=== PATIENT | female | born 1950 | race Caucasian/White ===

== ENCOUNTER 2023-01-29 14:23 | Outpatient (AMB) | payer MEDICARE, BC, SELFPAY ==
--- NOTE | 2023-01-29 14:25 | MHC.OFFVIS ---
Intake Vital Signs 01/29/23 14:27 Height 5 ft 5 in Weight 154 lb BMI 25.6 BP 118/74 Blood Pressure Location Rt brachial Position Sitting Pulse 78 Pulse Source Pulse Oximeter Pulse Oximetry (%) 98 Oxygen Delivery Method Room Air Intake Visit Reasons: NPV-Hx CVA w/residual weakness-confirmed Intake Note: Patient presents for weakness. Allergies codeine Allergy (Severe, Verified 01/29/23 14:29) Headache tolterodine [From Detrol] Allergy (Severe, Verified 01/29/23 14:29) Vomiting sulfamethizole Allergy (Unknown, Verified 01/29/23 14:29) Unknown fenatnyl Allergy (Severe, Uncoded 01/29/23 14:29) Unknown Medication List - Last Reconciled 01/29/23 by Moon Márquez MD aspirin 81 mg PO DAILY atorvastatin 80 mg PO DAILY atorvastatin 80 mg PO DAILY levothyroxine 100 mcg PO DAILY levothyroxine 50 mcg PO DAILY lisinopril 5 mg PO DAILY lisinopril 5 mg PO DAILY temazepam 15 mg PO BEDTIME PRN temazepam 15 mg PO BEDTIME PRN HPI HPI Comments History of Present Illness Details 73y/o female with 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 She started noticing chewing movements in left left side after her CVA.she can control it for few minutes.she does not know the exacerbating or relieving factors.she chews the side of her left cheek and the tongue which bothers her. She is not sure if it happens in sleep. she also has insomnia and she has been taking her husbands temazepam 15 mg qhs which is helping. SHe is not sure if she snores. she wakes up tired as she sleeps only 4 hrs of sleep. she naps during daytime, she sleeps 2 hrs during daytime.Appetite is good. Mood is stable. 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 [facility] Medical History (Updated 01/29/23 @ 15:04 by Moon Márquez MD) Abnormal involuntary movement Carotid stenosis CVA (cerebral vascular accident) HTN (hypertension) Hypothyroidism Left hemiparesis Right-sided extracranial carotid artery stenosis Surgical History H/O: hysterectomy Stented coronary artery Family History Father Diabetes Mother Ischemic bowel disease Daughter Diabetes Son Anxiety Social History Alcohol intake: never Patient Tobacco Use Status: Former Tobacco user Review of Systems Const Reports difficulty sleeping, Reports headache(s), Reports lethargy, Reports malaise, Reports weakness and Reports weight gain ENT Reports headache(s) and Reports hearing loss Neuro Reports headache(s) and Reports weakness Physical Exam Vital Signs: Last Vital Signs Pulse 78 01/29/23 14:27 BP 118/74 01/29/23 14:27 Pulse Ox 98 01/29/23 14:27 Oxygen Delivery Method Room Air 01/29/23 14:27 BMI result Body Mass Index 25.6 Const Orientation/consciousness: oriented to person, oriented to place and oriented to time Eyes Pupils: Equal, round and reactive pupils present Neuro Other: Left face UMN facial paresis - mild Left UE 0/5, spasticity Left LE 3/5 increased tone abnormal lower chin movements intermittent General: oriented to person, oriented to place, oriented to time and Unable to assess gait Cranial nerves: Yes Facial sensation intact/muscles of mastication intact, Yes Equal, round and reactive pupils present, Yes Bilaterally intact EOM present, Yes Nystagmus not present and Yes Midline tongue present Cognition (Neuro): normal cognition Gait exam (Neuro): Unable to assess gait Deep tendon reflexes (DTR's): Right triceps reflex intensity grade: 2+, Left triceps reflex intensity grade: 3+, Rt Biceps (C5, C6): 2+, Left biceps reflex intensity grade: 3+, Right brachioradialis reflex intensity grade: 2+, Left brachioradialis reflex intensity grade: 3+, Right patellar reflex intensity grade: 2+ and Left patellar reflex intensity grade: 3+ Coordination: [id number] test normal (normal on right) Assessment & Plan Assessment & Plan (1) Abnormal involuntary movement: Comment: left chin and mouth movement Code(s): R25.9 - Unspecified abnormal involuntary movements (2) CVA (cerebral vascular accident): Code(s): I63.9 - Cerebral infarction, unspecified (3) Left hemiparesis: Code(s): G81.94 - Hemiplegia, unspecified affecting left nondominant side Plan CT brain report from [facility] EEG to evaluate her abnormal movements I will trial her on gabapentin 100 mg 1-3 caps qhs Taper temazepam continue aspirin 81mg qd Atorvastatin 81mg qd Orders: Orders EEG electroencephalogram 01/29/23 R25.9 - Unspecified abnormal involuntary movements Medications: New gabapentin 1-3 caps orally bedtime; 90 caps 2RF Coding Level of Care Code New Pt Level 4 (40860) Diagnoses Abnormal involuntary movement R25.9 CVA (cerebral vascular accident) I63.9 Left hemiparesis G81.94
[2023-01-29 14:27] VITALS: BP 118/74; PULSE 78; O2SAT 98; BMI 25.6
== END 2023-01-29 15:11 | disposition home or self-care (01) ==
LOC: HO.HSMS 14:23
PROVIDERS: PCP Nurse Practitioner Adult Health; Visit Provider Psychiatry & Neurology Neurology
DX: R25.9 Unspecified abnormal involuntary movements (principal); I69.354 Hemiplegia and hemiparesis following cerebral infarction affecting left non-dominant side
CPT/HCPCS: 99204

== ENCOUNTER → 2023-01-29 14:23 | Outpatient (BNVA) | payer MEDICARE, BC, SELFPAY | PROVIDERS: PCP Nurse Practitioner Adult Health; Visit Provider Psychiatry & Neurology Neurology | DX: R25.9 Unspecified abnormal involuntary movements (principal); I63.9 Cerebral infarction, unspecified; G81.94 Hemiplegia, unspecified affecting left nondominant side; G47.00 Insomnia, unspecified; Z95.5 Presence of coronary angioplasty implant and graft | CPT/HCPCS: 99202 ==

== ENCOUNTER 2023-03-27 12:49 | Outpatient (REF) | payer MEDICARE, BC, SELFPAY ==
--- NOTE | 2023-03-27 12:53 | EEG_ITS ---
This is a 16 channel EEG with an EKG lead. The patient is reported awake during the tracing. Background EEG rhythm is continuously asymmetric with 16 to 20 hertz, 5 to 20 microvolt posteriorly and lower amplitude fast anteriorly type of noted in left hemispheric lead while in right hemispheric lead, predominant rhythm was 5 to 7 hertz, 5 to 100 microvolt posteriorly and lower amplitude anteriorly. Occasional right temporal sharp waves were noted with the phase reversal at T4. Cardiac lead did not reveal any significant abnormality. Photic stimulation did not reveal any significant driving. Hyperventilation was not performed. IMPRESSION: Abnormal EEG suggestive of right hemispheric dysfunction with suspicion of underlying structural abnormality but also mild tendency for partial seizures. MD JESSE Chawla/AYDE / [id number]
== END 2023-03-27 12:50 | disposition home or self-care (01) ==
LOC: HO.NEURO 12:49
PROVIDERS: PCP Nurse Practitioner Adult Health; Visit Provider Psychiatry & Neurology Neurology
DX: R25.9 Unspecified abnormal involuntary movements (principal)
CPT/HCPCS: 95816

== ENCOUNTER 2023-05-29 13:54 | Outpatient (AMB) | payer MEDICARE, BC, SELFPAY ==
--- NOTE | 2023-05-29 13:57 | A.OFFVIS_ITS ---
Intake Vital Signs 05/29/23 14:00 Height 5 ft 5 in BP 146/90 H Blood Pressure Location Rt brachial Position Sitting Respiration 16 Pulse 76 Pulse Source Pulse Oximeter Pulse Oximetry (%) 96 Oxygen Delivery Method Room Air Intake Visit Reasons: 3m Hx CVA w/residual weakness-confirmed Intake Note: Pt presents to the office for her 4 month follow up for abnormal involuntary movement. She reports she's been ok. 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 The weakness is the same. 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 Allergies codeine Allergy (Severe, Verified 05/29/23 13:58) Headache tolterodine [From Detrol] Allergy (Severe, Verified 05/29/23 13:58) Vomiting sulfamethizole Allergy (Unknown, Verified 05/29/23 13:58) Unknown fenatnyl Allergy (Severe, Uncoded 05/29/23 13:58) Unknown Medication List - Last Reconciled 05/29/23 by Moon Márquez MD aspirin 81 mg PO DAILY atorvastatin 80 mg PO DAILY famotidine 20 mg PO DAILY gabapentin 1-3 caps orally once; 1-3 caps orally qam gabapentin 300 mg PO BEDTIME levothyroxine 50 mcg PO DAILY lisinopril 5 mg PO DAILY HPI HPI Comments History of Present Illness Details 73y/o female with h/o CVA ( 2014)with re sidual left hemiparesis comes for evaluation of abnormal mouth movements. She started noticing chewing movements in left left side after her CVA.she can control it for few minutes.she does not know the exacerbating or relieving factors.she chews the side of her left cheek and the tongue which bothers her. She is not sure if it happens in sleep. she also has insomnia and she has been taking her husbands temazepam 15 mg qhs which is helping. SHe is not sure if she snores. she wakes up tired as she sleeps only 4 hrs of sleep. she naps during daytime, she sleeps 2 hrs during daytime.Appetite is good. Mood is stable. 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 [facility] Medical History (Updated 01/29/23 @ 15:04 by Moon Márquez MD) Abnormal involuntary movement Right-sided extracranial carotid artery stenosis Carotid stenosis Left hemiparesis CVA (cerebral vascular accident) Hypothyroidism HTN (hypertension) Surgical History Stented coronary artery H/O: hysterectomy Family History Father Diabetes Mother Ischemic bowel disease Daughter Diabetes Son Anxiety Social History Alcohol intake: never Patient Tobacco Use Status: Former Tobacco user Physical Exam Vital Signs: Last Vital Signs Pulse 76 05/29/23 14:00 Resp 16 05/29/23 14:00 BP 146/90 H 05/29/23 14:00 Pulse Ox 96 05/29/23 14:00 Oxygen Delivery Method Room Air 05/29/23 14:00 Const Orientation/consciousness: oriented to person, oriented to place and oriented to time Eyes Pupils: Equal, round and reactive pupils present Neuro Other: Left face UMN facial paresis - mild Left UE 0/5, spasticity Left LE 3/5 increased tone abnormal lower chin movements intermittent General: oriented to person, oriented to place, oriented to time and Unable to assess gait Cranial nerves: Yes Facial sensation intact/muscles of mastication intact, Yes Equal, round and reactive pupils present, Yes Bilaterally intact EOM present, Yes Nystagmus not present and Yes Midline tongue present Cognition (Neuro): normal cognition Gait exam (Neuro): Unable to assess gait Coordination: [id number] test normal (normal on right) Results Reviewed Results Reviewed: EEG- Abnormal EEG suggestive of right hemispheric dysfunction with suspicion of underlying structural abnormality but also mild tendency for partial seizures. Assessment & Plan Assessment & Plan (1) Abnormal involuntary movement: Comment: left chin and mouth movement Code(s): R25.9 - Unspecified abnormal involuntary movements (2) CVA (cerebral vascular accident): Code(s): I63.9 - Cerebral infarction, unspecified (3) Left hemiparesis: Code(s): G81.94 - Hemiplegia, unspecified affecting left nondominant side Plan CT brain report from [facility] Increase gabapentin 300mg qhs 100mg qam - discussed side effects . will monitor for 1 week on how she is doing with higher dose. continue aspirin 81mg qd Atorvastatin 81mg qd Medications: New gabapentin 300 mg PO BEDTIME 30 caps 6RF Changed From gabapentin 1-3 caps orally bedtime; 90 caps 2RF To gabapentin 1-3 caps orally once; 1-3 caps orally qam 90 caps 2RF Coding Level of Care Code Est Pt Level 4 (71921) Diagnoses Abnormal involuntary movement R25.9 CVA (cerebral vascular accident) I63.9 Left hemiparesis G81.94
[2023-05-29 14:00] VITALS: BP 146/90; PULSE 76; RESP 16; O2SAT 96
== END 2023-05-29 14:19 | disposition home or self-care (01) ==
PROVIDERS: PCP Nurse Practitioner Adult Health; Visit Provider Psychiatry & Neurology Neurology
DX: I69.354 Hemiplegia and hemiparesis following cerebral infarction affecting left non-dominant side (principal); R25.9 Unspecified abnormal involuntary movements
CPT/HCPCS: 99214

== ENCOUNTER → 2023-05-29 13:54 | Outpatient (BNVA) | payer MEDICARE, BC, SELFPAY | PROVIDERS: PCP Nurse Practitioner Adult Health; Visit Provider Psychiatry & Neurology Neurology | DX: R25.9 Unspecified abnormal involuntary movements (principal); I63.9 Cerebral infarction, unspecified; G81.94 Hemiplegia, unspecified affecting left nondominant side | CPT/HCPCS: 99212 ==

== ENCOUNTER 2023-07-12 14:01 | Outpatient (AMB) | payer MEDICARE, BC, SELFPAY ==
--- NOTE | 2023-07-12 14:02 | A.OFFVIS_ITS ---
Intake Intake Visit Reasons: 6 wks TELE per MD for Hx CVA w/residual weakness Intake Note: Attempted to contact pt for telehealth visit. Spoke to who stated she was in Rehab till Saturday07/14/23 s/p cardiac stent placements (2). Health Program Specialist Required: No Allergies codeine Allergy (Severe, Verified 05/29/23 13:58) Headache tolterodine [From Detrol] Allergy (Severe, Verified 05/29/23 13:58) Vomiting sulfamethizole Allergy (Unknown, Verified 05/29/23 13:58) Unknown fenatnyl Allergy (Severe, Uncoded 05/29/23 13:58) Unknown HPI HPI Comments History of Present Illness Details Attempted to contact pt for telehealth visit. Spoke to who stated she was in Rehab till Saturday07/14/23 s/p cardiac stent placements (2). [facility] Medical History (Updated 01/29/23 @ 15:04 by Moon Márquez MD) Abnormal involuntary movement Right-sided extracranial carotid artery stenosis Carotid stenosis Left hemiparesis CVA (cerebral vascular accident) Hypothyroidism HTN (hypertension) Surgical History Stented coronary artery H/O: hysterectomy Family History Father Diabetes Mother Ischemic bowel disease Daughter Diabetes Son Anxiety Social History Alcohol intake: never Patient Tobacco Use Status: Former Tobacco user Assessment & Plan Assessment & Plan (1) CVA (cerebral vascular accident): Code(s): I63.9 - Cerebral infarction, unspecified Plan Unable to do tele visit, rescheduled. Coding Level of Care Code Tele Est Pt Level 1 (56952) Diagnoses CVA (cerebral vascular accident) I63.9
== END 2023-07-12 14:09 | disposition home or self-care (01) ==
LOC: HO.HSMS 14:01
PROVIDERS: PCP Nurse Practitioner Adult Health; Visit Provider Nurse Practitioner Family
DX: I63.9 Cerebral infarction, unspecified (principal)
CPT/HCPCS: 99211

== ENCOUNTER → 2023-07-12 14:01 | Outpatient (BNVA) | payer MEDICARE, BC, SELFPAY | PROVIDERS: PCP Nurse Practitioner Adult Health; Visit Provider Nurse Practitioner Family ==

== ENCOUNTER 2023-10-08 13:43 | Outpatient (AMB) | payer MEDICARE, BC, SELFPAY ==
--- NOTE | 2023-10-08 13:50 | A.OFFVIS_ITS ---
Intake Vital Signs 10/08/23 13:51 Height 5 ft 5 in BP 142/78 H Blood Pressure Location Rt brachial Position Sitting Respiration 16 Pulse 83 Pulse Source Pulse Oximeter Pulse Oximetry (%) 98 Oxygen Delivery Method Room Air Intake Visit Reasons: 3 mnts f/u appt for Hx CVA-CONF Intake Note: Pt presents for 3 month follow up s/p CVA. 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 Allergies codeine Allergy (Severe, Verified 10/08/23 13:51) Headache tolterodine [From Detrol] Allergy (Severe, Verified 10/08/23 13:51) Vomiting sulfamethizole Allergy (Unknown, Verified 10/08/23 13:51) Unknown fenatnyl Allergy (Severe, Uncoded 10/08/23 13:51) Unknown Medication List - Last Reconciled 10/08/23 by Moon Márquez MD aspirin 81 mg PO DAILY atorvastatin 80 mg PO DAILY famotidine 20 mg PO DAILY gabapentin 300 mg PO BEDTIME levetiracetam (Keppra) 250 mg PO BID levothyroxine 50 mcg PO DAILY lisinopril 5 mg PO DAILY HPI HPI Comments History of Present Illness Details 73y/o female with h/o CVA ( 2014)with re sidual left hemiparesis comes for follow up of abnormal mouth movements.she has 2 cardiac stents since last visit and was in rehab after. She started noticing chewing movements in left left side after her CVA.she can control it for few minutes.It is not painful. she can usually stop it if she focuses. she also has insomnia and she has been taking her husbands temazepam 15 mg qhs which is helping. SHe is not sure if she snores. she wakes up tired as she sleeps only 4 hrs of sleep. she naps during daytime, she sleeps 2 hrs during daytime.Appetite is good. Mood is stable. 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 [facility] Medical History Abnormal involuntary movement Right-sided extracranial carotid artery stenosis Carotid stenosis Left hemiparesis CVA (cerebral vascular accident) Hypothyroidism HTN (hypertension) Surgical History Stented coronary artery H/O: hysterectomy Family History Father Diabetes Mother Ischemic bowel disease Daughter Diabetes Son Anxiety Social History Alcohol intake: never Patient Tobacco Use Status: Former Tobacco user Physical Exam Vital Signs: Last Vital Signs Pulse 83 10/08/23 13:51 Resp 16 10/08/23 13:51 BP 142/78 H 10/08/23 13:51 Pulse Ox 98 10/08/23 13:51 Oxygen Delivery Method Room Air 10/08/23 13:51 Const Orientation/consciousness: oriented to person, oriented to place and oriented to time Eyes Pupils: Equal, round and reactive pupils present Neuro Other: Left face UMN facial paresis - mild Left UE 0/5, spasticity Left LE 3/5 increased tone abnormal lower chin movements intermittent General: oriented to person, oriented to place, oriented to time and Unable to assess gait Cranial nerves: Yes Facial sensation intact/muscles of mastication intact, Yes Equal, round and reactive pupils present, Yes Bilaterally intact EOM present, Yes Nystagmus not present and Yes Midline tongue present Cognition (Neuro): normal cognition Gait exam (Neuro): Unable to assess gait Assessment & Plan Assessment & Plan (1) Abnormal involuntary movement: Comment: left chin and mouth movement ? partial seizures Code(s): R25.9 - Unspecified abnormal involuntary movements (2) CVA (cerebral vascular accident): Code(s): I63.9 - Cerebral infarction, unspecified (3) Left hemiparesis: Code(s): G81.94 - Hemiplegia, unspecified affecting left nondominant side Plan Gabapentin 300mg qhs EEG - ? right structural abnormality and possibility of partial seizures I will trial her on keppra continue aspirin 81mg qd Atorvastatin 81mg qd Medications: New levetiracetam (Keppra) 250 mg PO BID 60 tabs 3RF Discontinued gabapentin Discontinued Reason: Doctor's Order 1-3 caps orally once; 1-3 caps orally qam 90 caps 2RF Coding Level of Care Code Est Pt Level 4 (67947) Diagnoses Abnormal involuntary movement R25.9 CVA (cerebral vascular accident) I63.9 Left hemiparesis G81.94
[2023-10-08 13:51] VITALS: BP 142/78; PULSE 83; RESP 16; O2SAT 98
== END 2023-10-08 14:22 | disposition home or self-care (01) ==
PROVIDERS: PCP Nurse Practitioner Adult Health; Visit Provider Psychiatry & Neurology Neurology
DX: I69.354 Hemiplegia and hemiparesis following cerebral infarction affecting left non-dominant side (principal); R25.9 Unspecified abnormal involuntary movements
CPT/HCPCS: 99214

== ENCOUNTER → 2023-10-08 13:43 | Outpatient (BNVA) | payer MEDICARE, BC, SELFPAY | PROVIDERS: PCP Nurse Practitioner Adult Health; Visit Provider Psychiatry & Neurology Neurology | DX: R25.9 Unspecified abnormal involuntary movements (principal); I69.354 Hemiplegia and hemiparesis following cerebral infarction affecting left non-dominant side; Z95.5 Presence of coronary angioplasty implant and graft | CPT/HCPCS: 99212 ==

== ENCOUNTER 2023-12-24 10:33 | Outpatient (AMB) | payer MEDICARE, BC, SELFPAY ==
--- NOTE | 2023-12-24 10:33 | A.OFFVIS_ITS ---
Intake Visit Reasons: 3 Month F/U - Confirmed Intake Note: Pt presents for 3 month follow up via telehealth for Abnormal involuntary movement. Mountain Bike Guide Required: No Allergies codeine Allergy (Severe, Verified 12/24/23 10:35) Headache tolterodine [From Detrol] Allergy (Severe, Verified 12/24/23 10:35) Vomiting sulfamethizole Allergy (Unknown, Verified 12/24/23 10:35) Unknown fenatnyl Allergy (Severe, Uncoded 10/08/23 13:51) Unknown Medication List - Last Reconciled 12/24/23 by Moon Márquez MD aspirin 81 mg PO DAILY atorvastatin 80 mg PO DAILY famotidine 20 mg PO DAILY gabapentin 300 mg PO BEDTIME levetiracetam ER (Keppra XR) 500 mg PO DAILY 30 days levothyroxine 50 mcg PO DAILY lisinopril 5 mg PO DAILY HPI Comments Details: 73y/o female with 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 She started noticing chewing movements in left left side after her CVA.she can control it for few minutes.It is not painful. she can usually stop it if she focuses. she also has insomnia SHe is not sure if she snores. she wakes up tired as she sleeps only 4 hrs of sleep. she naps during daytime, she sleeps 2 hrs during daytime.Appetite is good. Mood is stable. 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 [facility] Medical History Abnormal involuntary movement Right-sided extracranial carotid artery stenosis Carotid stenosis Left hemiparesis CVA (cerebral vascular accident) Hypothyroidism HTN (hypertension) Surgical History Stented coronary artery H/O: hysterectomy Family History Father Diabetes Mother Ischemic bowel disease Daughter Diabetes Son Anxiety Social History Alcohol intake: never Patient Tobacco Use Status: Former Tobacco user Physical Exam Const General: cooperative Orientation/consciousness: oriented to person, oriented to place and oriented to time Neuro General: oriented to person, oriented to place and oriented to time Telehealth Telehealth Telehealth Platform: Telephone Location of provider rendering services: practice address Location of patient: address on file Patient Identification confirmed using: Name, : Yes Telehealth method: voice only Patient verbally consented to treatment: Yes Patient verbally consented to billing insurance company: Yes Patient informed of any privacy concerns related to visit: Yes Minutes spent on Phone/Video with Pt.: 16 Assessment & Plan Assessment & Plan (1) Abnormal involuntary movement: Comment: left chin and mouth movement ? partial seizures Code(s): R25.9 - Unspecified abnormal involuntary movements Category: Medical (2) CVA (cerebral vascular accident): Code(s): I63.9 - Cerebral infarction, unspecified Category: Medical (3) Left hemiparesis: Code(s): G81.94 - Hemiplegia, unspecified affecting left nondominant side Category: Medical Plan Increase Gabapentin 600mg qhs EEG - ? right structural abnormality and possibility of partial seizures Increase keppra XR 1000mg qd continue aspirin 81mg qd Atorvastatin 81mg qd Medications: Changed From levetiracetam ER (Keppra XR) 500 mg PO DAILY 30 days 30 tabs 6RF To levetiracetam ER 1,000 mg PO DAILY 30 days 30 tabs 6RF From gabapentin 300 mg PO BEDTIME 30 caps 6RF To gabapentin 600 mg (2 x 300 mg) PO BEDTIME 60 caps 6RF Coding Level of Care Code Tele Est Pt Level 4 (19509) Diagnoses Abnormal involuntary movement R25.9 CVA (cerebral vascular accident) I63.9 Left hemiparesis G81.94
== END 2023-12-24 16:00 ==
PROVIDERS: PCP Nurse Practitioner Adult Health; Visit Provider Psychiatry & Neurology Neurology
DX: R25.9 Unspecified abnormal involuntary movements (principal); I69.354 Hemiplegia and hemiparesis following cerebral infarction affecting left non-dominant side
CPT/HCPCS: 99442

== ENCOUNTER → 2023-12-24 10:33 | Outpatient (BNVA) | payer MEDICARE, BC, SELFPAY | PROVIDERS: PCP Nurse Practitioner Adult Health; Visit Provider Psychiatry & Neurology Neurology ==